=== PATIENT | female | born 1940 | race Caucasian/White ===

== ENCOUNTER 2016-08-20 06:53 | Emergency (ER) | payer OTHER, MEDICARE ==
[~2016-08-20] VITALS: Ht 160 cm; Wt 68.0 kg
[~2016-08-20 06:53] MED LIST: PAROXETINE HYDR20 MG PO; PRAVASTATIN SOD40 M2 PO
[2016-08-20 07:05] VITALS: BP 128/83
--- NOTE | 2016-08-20 07:59 | ED ANIMAL BITE/WOUND CHECK ---
History of Present Illness General Chief Complaint: Animal/Insect Bite Stated Complaint: "PER PT TICK BITE BELOW LT BUTTOX" Source: patient, old records Exam Limitations: no limitations Vital Signs & Intake/Output Vital Signs & Intake/Output Vital Signs Date Time Temp Pulse Resp B/P B/P Pulse O2 O2 Flow FiO2 Mean Ox Delivery Rate 08/20 0705 97.0 92 20 128/83 96 Room Air Allergies Coded Allergies: No Known Allergies (08/20/16) Reconcile Medications PAROXETINE HCL (Paroxetine Hydrochloride) 20 MG TAB 0.5 TAB PO DAILY MENTAL HEALTH (Reported) Pravastatin Sodium 40 MG TABLET 1 TAB PO DAILY HEART (Reported) Triage Note: PT TO ED C/O TICK BITE ON LEFT HIP. NOTICED YESTERDAY. Triage Nurses Notes Reviewed? yes Onset: Afternoon Duration: hour(s):, constant, continues in ED Timing: recent history Injury Environment: home Is Injury an Animal Bite? No Severity: mild No Modifying Factors: none LMP (ages 10-50): post menopausal : No Patient currently breastfeeds: No HPI: 1 day prior to admission patient noticed a tick on left thigh that she scratched off. She denies fever chills nausea vomiting diarrhea abdominal pain chest pain shortness breath headache dysuria bleeding rash. Past History Travel History Traveled to [place] past 21 day No Medical History Any Pertinent Medical History? see below for history Neurological: NONE EENT: NONE Cardiovascular: hyperlipidemia Respiratory: NONE Gastrointestinal: NONE Hepatic: NONE Renal: NONE Musculoskeletal: osteoarthritis Psychiatric: anxiety Endocrine: adrenal insufficiency Blood Disorders: NONE Cancer(s): NONE CLAIM TRAINEE/Reproductive: NONE Surgical History Surgical History: non-contributory Psychosocial History What is your primary language Singaporean Tobacco Use: Quit >30 days ago ETOH Use: denies use Illicit Drug Use: PCP Family History Hx Contributory? No Review of Systems Review of Systems Constitutional: Reports: no symptoms. EENTM: Reports: no symptoms. Respiratory: Reports: no symptoms. Cardiovascular: Reports: no symptoms. GI: Reports: no symptoms. Genitourinary: Reports: no symptoms. Musculoskeletal: Reports: no symptoms. Skin: Reports: see HPI. Neurological/Psychological: Reports: no symptoms. Hematologic/Endocrine: Reports: no symptoms. Immunologic/Allergic: Reports: no symptoms. All Other Systems: Reviewed and Negative Physical Exam Physical Exam General Appearance: well developed/nourished, mild distress Head: atraumatic Eyes: Bilateral: PERRL, EOMI. Ears, Nose, Throat: normal pharynx, normal ENT inspection, hearing grossly normal Neck: normal inspection, supple Respiratory: normal breath sounds Cardiovascular: regular rate/rhythm Peripheral Pulses: 4+ carotid (R), 4+ carotid (L) Gastrointestinal: soft, non-tender Back: normal inspection, normal range of motion Extremities: normal range of motion, no ligament instability Neurologic/Psych: awake, alert, oriented x 3, normal mood/affect Skin: normal color, warm/dry, rash, left lateral thigh with papule likely area of tick, left gluteal area with indurated erythematous patch 2cm squared with skin excoriation Lymphatic: no anterior cervical dahlia Progress Differential Diagnosis: abscess, cellulitis Plan of Care: Current Medications Sig/Jarrett Start time Last Medication Dose Stop Time Status Admin Doxycycline Hyclate 100 MG ONCE ONE 08/20 08 UNVr (Vibramycin) 08/20 08 Departure Departure Time of Disposition: 075 Disposition: HOME OR SELF CARE Condition: Stable Clinical Impression Primary Impression: Tick bite of left thigh Qualifiers: Encounter type: initial encounter Qualified Codes: S70.362A - Insect bite (nonvenomous), left thigh, initial encounter; W57.XXXA - Bitten or stung by nonvenomous insect and other nonvenomous arthropods, initial encounter Referrals: NOLAN FRY MD (PCP/Family) Departure Forms: Customer Survey General Discharge Information
== END 2016-08-20 08:13 ==
LOC: ERH 06:53
DX: S70.362A Insect bite (nonvenomous), left thigh, initial encounter (principal); W57.XXXA Bitten or stung by nonvenomous insect and other nonvenomous arthropods, initial encounter

== ENCOUNTER 2016-11-04 09:01 | Emergency (ER) | payer OTHER, MEDICARE ==
[~2016-11-04] VITALS: Ht 160 cm; Wt 68.0 kg
[~2016-11-04 09:01] MED LIST changes: -PAROXETINE HYDR20 MG PO; +PAXIL20 M1 PO
[2016-11-04] MEDS ORDERED: TRIAMCINOLONE A15 G1 TOP (10:05)
--- NOTE | 2016-11-04 10:06 | ED SKIN/ALLERGY COMPLAINT ---
History of Present Illness General Chief Complaint: Skin Rash/ Abcess Stated Complaint: RASH ON HANDS/ARMS Source: patient Exam Limitations: no limitations Vital Signs & Intake/Output Vital Signs & Intake/Output Vital Signs Date Time Temp Pulse Resp B/P B/P Pulse O2 O2 Flow FiO2 Mean Ox Delivery Rate 11/04 1026 96.6 60 18 131/75 98 Room Air 11/04 0959 98 Room Air 11/04 0904 97.5 97 20 129/77 97 Room Air Allergies Coded Allergies: No Known Allergies (08/20/16) Triage Note: PT TO ED C/O RASH TO B/L HANDS RADIATING UP B/L ARMS, SINCE THURSDAY. DENIES NEW SOAP, LOTION, DETERGENT, ETC. HAS BEEN PUTTING WITCH PEDRITO ON IT WITH SOME RELIEF. Triage Nurses Notes Reviewed? yes Onset: Gradual Duration: day(s): (2) Timing: no prior history Severity: moderate Severity Numbers: 6 Location: hands, extremities Possible Factors: UNKNOWN HPI: Patient is a 76-year-old female with no past medical history presenting to the emergency department with chief complaint of rash on the upper extremities has been going on for the past one day. She does report she is outside often. Unsure if she was bitten by anything. Denies any fevers chills nausea vomiting chest pain or shortness of breath. Has been applying witch pedrito with some relief. Denies any new exposures. No recent travel. No else with similar rash. Denies any pets. Denies any pain associated with the rash. (DALTON MALDONADO,DRAKE) Reconcile Medications Paroxetine HCl (Paxil) 20 MG TABLET 1 TAB PO DAILY MENTAL HEALTH (Reported) Pravastatin Sodium 40 MG TABLET 1 TAB PO DAILY HEART (Reported) Triamcinolone Acetonide 0.1 % CREAM..G. 1 EDWARDO TOP BID RASH (SOL MILLER DO) Past History Travel History Traveled to [place] past 21 day No Medical History Any Pertinent Medical History? see below for history Neurological: NONE EENT: NONE Cardiovascular: hyperlipidemia Respiratory: NONE Gastrointestinal: NONE Hepatic: NONE Renal: NONE Musculoskeletal: osteoarthritis Psychiatric: anxiety Endocrine: adrenal insufficiency Blood Disorders: NONE Cancer(s): NONE DIRECTOR SOCIAL WELFARE/Reproductive: NONE Surgical History Surgical History: non-contributory Psychosocial History What is your primary language Mongolian Tobacco Use: Quit >30 days ago ETOH Use: denies use Illicit Drug Use: denies illicit drug use Family History Hx Contributory? No (DRAKE CARDONA) Review of Systems Review of Systems Constitutional: Reports: no symptoms. Comments Review of systems: See HPI, All other systems negative. Constitutional, no chills fever or weight loss HEENT: No visual changes no sore throat no congestion Cardiovascular: No chest pain ,palpitation Skin, no jaundice Respiratory: No dyspnea cough sputum or hemoptysis GI: No nausea no vomiting : No dysuria No hematuria Muscle skeletal: no back pain, no neck pain, Neurologic: No numbness no headaches Psych: No stress anxiety Immunology: No splenectomy or history of AIDS (DRAKE CARDONA) Physical Exam Physical Exam General Appearance: well developed/nourished, no apparent distress, alert, awake , comfortable Comments: Well-developed well-nourished person in no acute distress HEENT: . atraumatic. Nose is atraumatic. Neck: Normal inspection Cardiovascular: Radial pulses are 2+ bilaterally. Respiratory: No respiratory distress. Extremity: No edema, no calf tenderness to palpation, normal and equal pulses. Neuro: Alert oriented x3 Skin: There are 3, circular, slightly raised lesions approximately 1 cm in size noted on the right upper and left upper extremity, nontender, blanchable, nonfluctuant. No surrounding erythema or edema. Mild excoriations noted in the areas. Psych: Mood and affect is normal, memory and judgment is normal. (DRAKE CARDONA) Progress Differential Diagnosis: urticaria, INSECT BITE, ALLERGIC REACTION, DRUG REACTION , CONTACT DERMATITIS Plan of Care: Patient is well-appearing, afebrile . Appears to have 4-6 lesions that appear to be some sort of insect bite noted on the upper extremities. Patient will be treated symptomatically with topical steroid ointment. Educated on use of Benadryl to help with itch. She'll return for any worsening symptoms or concerns. Discussed with Dr. Miller and he agrees with plan. (DRAKE CARDONA) Departure Departure Time of Disposition: 1002 Disposition: HOME OR SELF CARE Condition: Stable Clinical Impression Primary Impression: Rash Referrals: RACHAEL GAYTAN,NOLAN MARTINEZ MD (PCP/Family) ANGELA HERNANDEZ MD Additional Instructions: Follow-up with your primary care physician call to make an appointment. Use topical steroid cream as prescribed. Avoid scratching. Return for worsening symptoms or concerns. He can also use [id number] Benadryl to help with itching. Departure Forms: Customer Survey General Discharge Information Prescriptions: Current Visit Scripts Triamcinolone Acetonide 1 EDWARDO TOP BID #30 GM (DALTON MALDONADO,DRAKE) PA/DUMP GRADER Co-Sign Statement Statement: ED Attending supervision documentation- [X] I saw and evaluated the patient. I have also reviewed all the pertinent lab results and diagnostic results. I agree with the findings and the plan of care as documented in the PA's/DUMP GRADER's documentation. [] I have reviewed the ED Record and agree with the PA's/DUMP GRADER's documentation. [] Additions or exceptions (if any) to the PAs/DUMP GRADER's note and plan are summarized below: [] (SOL MILLER DO
[2016-11-04 10:26] VITALS: BP 131/75
== END 2016-11-04 10:26 ==
LOC: ERH 09:01
DX: R21 Rash and other nonspecific skin eruption (principal)